=== PATIENT | female | born 1980 | race Two or more races ===

== ENCOUNTER 2017-08-17 18:12 | Emergency (ER) | payer SELFPAY ==
--- NOTE | 2017-08-17 18:31 | ED PDOC ---
HPI: General Adult Time Seen by Provider: 08/17/17 18:21 Chief Complaint (Nursing): Psychiatric Evaluation Chief Complaint (Provider): eval History Per: Patient, Other (Police) Additional Complaint(s): Female patient arrives with police were evaluation. Patient was found sitting in the park and police were concerned the patient may be cold. Police state the patient has been noted in the same park for the past several days. Patient has refused to go to a fci as per police. Police arrive with patient for medical and psychiatric evaluation. Patient offers no complaints and does not wish to be here. Past Medical History Reviewed: Historical Data, Nursing Documentation, Vital Signs - Medical History PMH: No Chronic Diseases - Family History Family History: States: Unknown Family Hx - Living Arrangements Living Arrangements: Other (non-domiciled) - Social History Current smoker - smoking cessation education provided: No Alcohol: None Drugs: Denies - Allergies Allergies/Adverse Reactions: Allergies Allergy/AdvReac Type Severity Reaction Status Date / Time Unobtainable Allergy Verified 08/17/17 18:17 Review of Systems ROS Statement: Except As Marked, All Systems Reviewed And Found Negative Physical Exam - Reviewed Nursing Documentation Reviewed: Yes Vital Signs Reviewed: Yes - Physical Exam Appears: Positive for: Well Neurologic/Psych: Positive for: Alert, Oriented, Gait (steady), Other (Patient answers questions appropriately) Medical Decision Making Medical Decision Making: Impression: Female patient arrives via police. Patient is not under arrest. Patient refuses to provide any personal information including name and date of . She refused to take off her coat and reufsed vital signs. Patient is awake and alert with no signs of intoxication upon arrival. Patient states that she is respectively declining any medical or psychiatric evaluation. She denies any suicidal or homicidal ideation. She denies alcohol or drug use. The patient denies being in any danger. She states she is from out of town and will find her way. Patient refused to sign discharge paperwork. Disposition - Clinical Impression Clinical Impression: Encounter for medical screening examination - Patient ED Disposition Is Patient to be Admitted: No Counseled Patient/Family Regarding: Need For Followup - Disposition Referrals: [facility] [Outside] Disposition Time: 19:24 Condition: FAIR Instructions: Normal Exam (ED) Forms: [employer] ([place]istani)
== END 2017-08-17 18:40 | disposition home or self-care (01) ==
LOC: H.ER 18:12
DX: Z04.6 Encounter for general psychiatric examination, requested by authority (principal)